=== PATIENT | female | born 1980 | race African-American/Black ===

== ENCOUNTER 2016-11-04 09:15 | Emergency (ER) | payer OTHER ==
[~2016-11-04 09:15] MED LIST: CYCL-36 PO; DIPH2%T PO; ZYRT10TA12 PO
--- NOTE | 2016-11-04 09:57 | PD ---
HPI Chief Complaint Possible contractions Date Seen: Nov 04, 2016 Time Seen: 09:33 (Soham Gomez MD) Travel History International Travel<30 Days: No Contact w/Intl Traveler<30Days: No Known Affected Area: No (Soham Gomez MD) History of Present Illness HPI 36-year-old 4 para 2011 at 26 weeks and 2 days gestation with an EDC of February 10 who reports being in her normal state of health until she awakened this morning and was feeling some lower abdominal discomfort. This was not relieved by bowel movement and passing gas and then she began to wonder if this could be contractions. She denies any diarrhea, nausea vomiting, dysuria hematuria or frequency. No vaginal discharge or bleeding. She has not had intercourse recently. She reports having been very physically active due to moving house. Para: 2 : 4 Miscarriage: 1 (Soham Gomez MD) History Past Medical History Narrative Medical History of migraines Recent workup for thrombocytopenia which was identified in her last . She reports her last platelet count in the 140,000 range (Soham Gomez MD) Obstetric History Obstetric History 2 prior vaginal deliveries at term Current gestation is on uncomplicated and followed by Dr. Flores (Soham Gomez MD) Past Surgical History Narrative Surgical She had partial colectomy around age 10 (Soham Gomez MD) Family History Family History: Negative (Soham Gomez MD) Social History Alcohol Use: No Tobacco Use: No Substance Abuse: No (Soham Gomez MD) Allergies-Medications (Allergen,Severity, Reaction): Coded Allergies: No Known Allergies (Verified , 05/30/16) Home Meds Active Scripts Cyclobenzaprine Hcl (Flexeril)10 Mg Tab10 Mg PO TID #20 TAB Ref 0 Prov:Jerome Whittaker MD 05/31/16 Reported Medications Diphenhydramine Hcl (Benadryl)25 Mg Cap25 Mg PO HS PRN 05/31/16 Cetirizine Hcl (Zyrtec)10 Mg Tab10 Mg PO DAILY 05/31/16 Review of Systems Except as stated in HPI: all other systems reviewed are Neg (Soham Gomez MD) Physical Exam Narrative GENERAL: Well-nourished, well-developed patient. SKIN: Warm and dry. HEAD: Normocephalic and atraumatic. EYES: No scleral icterus. No injection or drainage. ENT: No nasal drainage noted. Mucous membranes pink. Airway patent. NECK: Supple, trachea midline. No JVD. CARDIOVASCULAR: Regular rate and rhythm without murmurs, gallops, or rubs. RESPIRATORY: Breath sounds equal bilaterally. No accessory muscle use. ABDOMEN/GI: Abdomen soft, non-tender, bowel sounds present, no rebound, no guarding Gravid to [-] weeks size Fundal Height: [-26] GENITOURINARY: External Genitalia: intact and normal in appearance BUS glands: [-] Cervix: [-] Dilatation: [Closed-] Effacement: [-] Long Station: [-Ballotable] Presentation: [-] Membranes: [intact Uterine Contractions: [-] FHT's: Category: [-] Baseline: [-] Reactive: [-] Variability: [-] Decels: [-] EXTREMITIES: No cyanosis or edema. BACK: Nontender without obvious deformity. No CVA tenderness. NEUROLOGICAL: Awake and alert. Motor and sensory grossly within normal limits. Five out of 5 muscle strength in all muscle groups. Normal speech. (Soham Gomez MD) Data Data Vital Signs Reviewed: Yes (Soham Gomez MD) MDM Medical Record Reviewed: Yes Narrative Course / MDM 36-year-old multiparous female at 26+ weeks gestation with possible contractions Plan: Urinalysis, monitor for signs of contraction activity (Soham Gomez MD) Plan small CTXs seen -- give 1 L IVF and SQ terb .25 mg , UA neg , plan to D/C after IVF in if not CTXing (Jose De Jesus Perez II, MD) Soham Gomez MD Nov 04, 2016 09:57 Jose De Jesus Perez II, MD Nov 04, 2016 10:56
[2016-11-04 10:06] LABS: BACTERIA, URINE OCC /hpf; BLOOD, URINE NEG (NEG); COMMENT (UR) CULT NOT INDICATED; CULTURE IF INDICATED CULT NOT INDICATED; GLUCOSE,URINE NEG (NEG); KETONE, URINE NEG (NEG); MUCUS URINE FEW /lpf (OCC); NITRITE,URINE NEG (NEG); PH, URINE 6.5 (5.0-8.5); SQUAMOUS EPITHELIAL CELL URINE 2 /hpf (0-5); URINE COLOR YELLOW (YELLW/STRAW)
[2016-11-04] MEDS ORDERED: LACTATED RINGER'S 1000 ML INJ 1,000 ML IV SCH (10:37)
[2016-11-04] MEDS ORDERED: TERBUTALINE INJ 1 MG/ML AMP SQ ONE (11:30)
== END 2016-11-04 21:09 | disposition home or self-care (01) ==
LOC: HOBED 09:15
DX: O26.892 Other specified pregnancy related conditions, second trimester (principal); R10.30 Lower abdominal pain, unspecified
CPT/HCPCS: 81001; 96372; 99284; J3105; J7120

== ENCOUNTER 2017-01-20 10:38 | Emergency (ER) | payer OTHER ==
[~2017-01-20] VITALS: Ht 165.1 cm; Wt 78.9 kg
[2017-01-20 11:15] VITALS: RESP 20; TEMP 98.7
[2017-01-20] MEDS ORDERED: prenatal vitamin (11:23)
[2017-01-20] MEDS ORDERED: LACTATED RINGER'S 1000 ML INJ 1,000 ML IV SCH (12:11)
[2017-01-20] MEDS ORDERED: ONDANSETRON HCL 4 MG/2 ML VIAL IV ONE (12:15)
--- NOTE | 2017-01-20 13:03 | PD ---
HPI Chief Complaint abdominal pain, diarrhea, vomiting Travel History International Travel<30 Days: No Contact w/Intl Traveler<30Days: No Known Affected Area: No History of Present Illness HPI PT is a 36 y//o with IUP at 37w0d who presents for eval of ab pain, n/v , and diarrhea. PT reports that she ate some fish, rice, and vegetables around 2:30 am, then woke up this morning around 7:30 am with abdominal pain. She went to bathroom and had diarrhea followed by copious vomiting. No vomiting or diarrhea since arrival, but patient has not tried to eat or drink anything. Pt denies fever. Pt reports feeling some contractions. denies LOF. +FM Para: 2 : 5 Miscarriage: 1 : 1 History Past Medical History Narrative Medical thrombocytopenia Obstetric History Obstetric History 2003 FTSVD 2006 FTSVD EAB SAB Past Surgical History Narrative Surgical D+C Family History Family History: Negative Social History Alcohol Use: No Tobacco Use: No Substance Abuse: No Allergies-Medications (Allergen,Severity, Reaction): Coded Allergies: No Known Allergies (Verified , 05/30/16) Home Meds Reported Medications [ vitamin] No Conflict Check1 01/20/17 Diphenhydramine Hcl (Benadryl)25 Mg Cap25 Mg PO HS PRN 05/31/16 Discontinued Reported Medications Cetirizine Hcl (Zyrtec)10 Mg Tab10 Mg PO DAILY 05/31/16 Discontinued Scripts Cyclobenzaprine Hcl (Flexeril)10 Mg Tab10 Mg PO TID #20 TAB Ref 0 Prov:Jerome Whittaker MD 05/31/16 Review of Systems General / Constitutional: No: Fever, Weight Gain, Weight Loss, Chills, Other Eyes: No: Diploplia, Blurred Vision, Visual changes, Pain, Photophobia, Other HENT: No: Headaches, Vertigo, Dental Difficulties, Lightheadedness, Other Cardiovascular: No: Irregular Rhythm, Chest Pain or Discomfort, Palpitations, Tachycardia, Syncope, Varicosities, Edema, Cyanosis, Other Respiratory: No: Cough, Short of Breath, Wheezing, Other Gastrointestinal: Nausea, Vomiting, Diarrhea, Abdominal Pain, Indigestion Genitourinary: No: Urgency, Frequency, Dysuria, Nocturia, Hematuria, Decreased Urinary Output, Oliguria, Hesitancy, Dribbling, Incontinence, Pelvic Pain, Dyspareunia, Discharge, Menorrhagia, Vaginal Bleeding, Other Musculoskeletal: No: Limited ROM, Weakness, Cramping, Edema, Pain, Other Skin: No Rash, No Itching, No Dryness, No Lumps, No Change in Pigmentation, No Change in Nails, No Alopecia, No Lesions, No Breast Lumps, No Breast Tenderness , No Breast Swelling, No Other Neurologic: No: Weakness, Dizziness, Syncope, Focal Abnormalities, Coordination Problem, Headache, Slurred Speech, Seizures, Other Psychiatric: No: Anxiety, Depression, Suicidal Ideations, Disorder of Thought, Mood Disorder, Substance Abuse, Homicidal Ideation, Other Endocrine: No: Heat Intolerance, Cold Intolerance, Polydipsia, Polyuria, Other Hematologic/Lymphatic: No Easy Bruising, No Lymph Node Enlargement, No Other Physical Exam 122/77, 84 Narrative GENERAL: Well-nourished, well-developed patient. SKIN: Warm and dry. HEAD: Normocephalic and atraumatic. EYES: No scleral icterus. No injection or drainage. ENT: No nasal drainage noted. Mucous membranes pink. Airway patent. NECK: Supple, trachea midline. No JVD. CARDIOVASCULAR: Regular rate and rhythm without murmurs, gallops, or rubs. RESPIRATORY: Breath sounds equal bilaterally. No accessory muscle use. ABDOMEN/GI: Abdomen soft, non-tender, bowel sounds present, no rebound, no guarding Gravid GENITOURINARY: External Genitalia: intact and normal in appearance BUS glands: [wnl] Cervix: posterior Dilatation: 1 Effacement: 25 Station: -[address]: [facility] Membranes: intact Uterine Contractions: irritability FHT's: Category: 1 Baseline: 140s Reactive: yes Variability: mod Decels: no EXTREMITIES: No cyanosis or edema. BACK: Nontender without obvious deformity. No CVA tenderness. NEUROLOGICAL: Awake and alert. Motor and sensory grossly within normal limits. Five out of 5 muscle strength in all muscle groups. Normal speech. Data Data Vital Signs Reviewed: Yes Orders Vital Signs (Adult) .ON ADMISSION (01/20/17 12:11) ^ Labor Status (01/20/17 12:11) Lactated Ringer's 1000 Ml Inj (Lr 1000 M (01/20/17 12:11) Ondansetron Inj (Zofran Inj) (01/20/17 12:15) Complete Blood Count With Diff (01/20/17 12:34) Comprehensive Metabolic Panel (01/20/17 12:34) Labs Laboratory Tests Test 01/20/17 12:30 White Blood Count 10.0 TH/MM3 Red Blood Count 3.96 MIL/MM3 Hemoglobin 11.1 GM/DL Hematocrit 34.8 % Mean Corpuscular Volume 87.9 FL Mean Corpuscular Hemoglobin 28.1 PG Mean Corpuscular Hemoglobin 31.9 % Concent Red Cell Distribution Width 16.4 % Platelet Count 72 TH/MM3 Mean Platelet Volume 11.6 FL Neutrophils (%) (Auto) 84.2 % Lymphocytes (%) (Auto) 12.3 % Monocytes (%) (Auto) 3.2 % Eosinophils (%) (Auto) 0.0 % Basophils (%) (Auto) 0.3 % Neutrophils # (Auto) 8.4 TH/MM3 Lymphocytes # (Auto) 1.2 TH/MM3 Monocytes # (Auto) 0.3 TH/MM3 Eosinophils # (Auto) 0.0 TH/MM3 Basophils # (Auto) 0.0 TH/MM3 CBC Comment AUTO DIFF Differential Comment AUTO DIFF CONFIRMED Platelet Estimate LOW Platelet Morphology Comment ENLARGED Ovalocytes 1+ Sodium Level 139 MEQ/L Potassium Level 4.5 MEQ/L Chloride Level 108 MEQ/L Carbon Dioxide Level 20.0 MEQ/L Anion Gap 11 MEQ/L Blood Urea Nitrogen 9 MG/DL Creatinine 0.61 MG/DL Estimat Glomerular Filtration 134 ML/MIN Rate Random Glucose 57 MG/DL Calcium Level 8.9 MG/DL Total Bilirubin 0.3 MG/DL Aspartate Amino Transf 29 U/L (AST/SGOT) Alanine Aminotransferase 24 U/L (ALT/SGPT) Alkaline Phosphatase 149 U/L Total Protein 6.7 GM/DL Albumin 2.7 GM/DL MDM Medical Record Reviewed: Yes Narrative Course / MDM 36 y/o with IUP at 37 wks with probable viral gastroenteritis versus food poisoning no evidence of labor at this time will IV hydrate, give zofran, check cbc/cmp, then attempt po challenge pt still feeling cramping but improved s/p hydration and medication. tolerated po challenge. d/c home--recommend rest, clear liquids x 24 hours then slowly advance diet return to ed for worsening symptoms Diagnosis Diagnosis: Primary Impression: Gastroenteritis Additional Impression: 37 weeks gestation of Disposition: 01 DISCHARGE HOME Condition: Stable Patient Instructions: Abdominal Pain in (ED), General Instructions, Early Labor Signs (ED) Erasto Ahumada MD Jan 20, 2017 13:03
[2017-01-20 13:12] LABS: AUTOMATED NEUTROPHIL # 8.4 TH/MM3 (1.8-7.7); BASOPHIL % 0.3 % (0.0-2.0); HEMATOCRIT 34.8 % (35.0-46.0); LYMPH % 12.3 % (9.0-44.0); LYMPHOCYTE # 1.2 TH/MM3 (1.0-4.8); MEAN CELL VOLUME 87.9 FL (80.0-100.0); MEAN CORPUSCULAR HEMOGLOBIN 28.1 PG (27.0-34.0); MEAN CORPUSCULAR HGB CONC 31.9 % (32.0-36.0); MONO % 3.2 % (0.0-8.0); NEUT % 84.2 % (16.0-70.0); PLATELET COUNT 72 TH/MM3 (150-450); RED BLOOD COUNT 3.96 MIL/MM3 (4.00-5.30); RED CELL DISTRIBUTION WIDTH 16.4 % (11.6-17.2)
[2017-01-20] MEDS ORDERED: CALCIUM CARBONATE 500 MG CHEWABLE TAB CHEW ONE (13:15)
[2017-01-20 13:45] LABS: ALT (GPT) 24 U/L (10-53)
[2017-01-20] MEDS ORDERED: LOPERAMIDE HCL 2 MG CAP PO ONE (13:45)
[2017-01-20 13:47] LABS: ALKALINE PHOSPHATASE 149 U/L (45-117); TOTAL BILIRUBIN ADULT 0.3 MG/DL (0.2-1.0)
[2017-01-20 13:48] LABS: ANION GAP 11 MEQ/L (5-15); AST (GOT) 29 U/L (15-37); BLOOD UREA NITROGEN 9 MG/DL (7-18); CHLORIDE 108 MEQ/L (98-107); GLOMERULAR FILTRATION RATE 134 ML/MIN (>89); POTASSIUM 4.5 MEQ/L (3.5-5.1); SODIUM (NA) 139 MEQ/L (136-145)
[2017-01-20 13:51] VITALS: BP 112/69; PULSE 84
[2017-01-20 13:54] LABS: HEMO FLAGS AUTO DIFF
[2017-01-20 13:58] LABS: OVALOCYTES 1+ (NORMAL); PLATELET ESTIMATE SMEAR LOW (NORMAL); PLATELET MORPHOLOGY ENLARGED (NORMAL); SCAN/DIFF AUTO DIFF CONFIRMED
== END 2017-01-20 14:58 | disposition home or self-care (01) ==
LOC: HOBED 10:38
DX: O99.613 Diseases of the digestive system complicating pregnancy, third trimester (principal); K52.9 Noninfective gastroenteritis and colitis, unspecified; Z3A.37 37 weeks gestation of pregnancy
CPT/HCPCS: 80053; 85025; 96361; 96374; 99284; J2405; J7120

== ENCOUNTER 2017-02-03 06:07 | Inpatient (IN) | payer OTHER ==
[~2017-02-03] VITALS: Ht 165.1 cm; Wt 78.9 kg
[2017-02-03] VITALS (31 sets, daily range): BP systolic 112–142; BP diastolic 69–118; PULSE 67–87; RESP 8–20; TEMP 97.3–98.1
[~2017-02-03 06:07] MED LIST changes: -CYCL-36 PO; -ZYRT10TA12 PO; +prenatal vitamin
[2017-02-03] MEDS ORDERED: LIDOCAINE HCL 1% 50 ML VIAL I-DERMAL PRN (06:30)
[2017-02-03] MEDS ORDERED: NS 500 ML BOLUS IV PRN (06:30)
[2017-02-03] MEDS ORDERED: LACTATED RINGER'S 1000 ML IV SCH (06:30)
[2017-02-03] MEDS ORDERED: LACTATED RINGER'S 1000 ML BOLUS IV PRN (06:30)
[2017-02-03] MEDS ORDERED: CITRIC ACID-SODIUM CITRATE LIQ 30 ML UDC PO SCH (06:30)
[2017-02-03] MEDS ORDERED: NS 1000 ML IV PRN (06:30)
[2017-02-03] MEDS ORDERED: LIDOCAINE HCL 1% 50 ML VIAL INFIL PRN (06:30)
[2017-02-03] MEDS ORDERED: ONDANSETRON HCL 4 MG/2 ML VIAL IV PRN (06:30)
[2017-02-03] MEDS ORDERED: OXYTOCIN 30 UNITS 500ML PREMIX IV ONE (06:30)
[2017-02-03] MEDS ORDERED: MINERAL OIL 10 ML VIAL TOPICAL PRN (06:30)
[2017-02-03] MEDS ORDERED: OXYTOCIN 30 UNITS/NS 500ML PREMIX IV SCH (06:30)
[2017-02-03 08:25] LABS: BACTERIA, URINE FEW /hpf; BLOOD, URINE TRACE (NEG); COMMENT (UR) CULT NOT INDICATED; CULTURE IF INDICATED CULT NOT INDICATED; GLUCOSE,URINE NEG (NEG); KETONE, URINE NEG (NEG); MUCUS URINE FEW /lpf (OCC); NITRITE,URINE NEG (NEG); PH, URINE 6.5 (5.0-8.5); SQUAMOUS EPITHELIAL CELL URINE 1 /hpf (0-5); URINE COLOR YELLOW (YELLW/STRAW)
[2017-02-03 08:59] LABS: AUTOMATED NEUTROPHIL # 7.8 TH/MM3 (1.8-7.7); BASOPHIL # 0.1 TH/MM3 (0-0.2); BASOPHIL % 0.7 % (0.0-2.0); HEMATOCRIT 35.7 % (35.0-46.0); LYMPH % 16.5 % (9.0-44.0); LYMPHOCYTE # 1.6 TH/MM3 (1.0-4.8); MEAN CELL VOLUME 87.3 FL (80.0-100.0); MEAN CORPUSCULAR HEMOGLOBIN 29.1 PG (27.0-34.0); MEAN CORPUSCULAR HGB CONC 33.3 % (32.0-36.0); MONO % 4.8 % (0.0-8.0); PLATELET COUNT 79 TH/MM3 (150-450); RED BLOOD COUNT 4.09 MIL/MM3 (4.00-5.30); RED CELL DISTRIBUTION WIDTH 18.4 % (11.6-17.2)
[2017-02-03 09:00] LABS: HEMO FLAGS AUTO DIFF
[2017-02-03 09:29] LABS: OVALOCYTES 1+ (NORMAL); PLATELET ESTIMATE SMEAR LOW (NORMAL); PLATELET MORPHOLOGY ENLARGED (NORMAL)
[2017-02-03 09:30] LABS: SCAN/DIFF AUTO DIFF CONFIRMED
[2017-02-03] MEDS: predniSONE 20 MG TAB PO SCH (09:30)
--- NOTE | 2017-02-03 09:56 | MB ---
cc: CRISTI RODRIGUEZ MD DATE OF CONSULTATION: 02/03/2017 DATE OF : 1980. REASON FOR CONSULTATION Thrombocytopenia (chronic). CHIEF COMPLAINT Ms. Higuera presents to the hospital electively for labor induction; she is with her third baby. She denies other complaints, specifically overt bleeding. HISTORY OF PRESENT ILLNESS Ms. Higuera is a 36-year-old female with a history of chronic thrombocytopenia whom I last met 3 days ago in clinic. The patient was referred to me for reevaluation of her thrombocytopenia by her sales leader. Ms. Higuera has had a longstanding history of thrombocytopenia dating back over 10 years. She has not required any interventions up until about a week and a half ago. She was at that time initiated on corticosteroids of 40 mg prednisone daily which she tapered down to 20 mg three days ago. The prednisone seemingly had limited effect on her thrombocytopenia as her platelet counts remained in the 70 to 80,000 range. 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 However, the final decision of epidural placement will be left to the anesthesiologists. Ms. Higuera reports already feeling contractions, she is on the monitor and the baby's heart rate and rhythm seem to be normal and appropriate given the contractions. PAST MEDICAL HISTORY 1. Chronic thrombocytopenia dating back at least to 2001. 2. Migraines. 3. Menorrhagia. PAST SURGICAL HISTORY 1. Partial colectomy at the age of 10. 2. Umbilical hernia surgery. GYNECOLOGIC 4, para 2. FAMILY HISTORY Mom is living, she has rheumatoid arthritis, father is living and he has diabetes. No known oncologic diagnoses. 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 She reports being a lifelong nonsmoker. ALLERGIES NO KNOWN DRUG ALLERGIES. MEDICATION Current inpatient medications: 1. Lactated Ringer's. 2. Oxytocin 30 units IV titration. 3. Normal saline 100 cc/hour. 4. Citric acid 30 mL correctional medicine physician. 5. Fentanyl 50 mcg x1. 6. Zofran 4 mg IV q.6 hours. REVIEW OF SYSTEMS 13-point review of systems is obtained. The patient denies any acute complaints other than contractions and pain associated with that of the uterus. She specifically denies fevers, chills, night sweats, overt bleeding, nausea, vomiting, diarrhea hematochezia or melena. She denies difficulty breathing, she denies chest pain, she denies headaches, she denies any focal sensory or motor deficits, she denies bruising. PHYSICAL EXAMINATION VITAL SIGNS: Temperature 97.9 degrees Fahrenheit, heart rate 81 beats per minute, respiratory rate 18, blood pressure 125/83. GENERAL PHYSICAL APPEARANCE: Ms. Higuera is a young female, she is laying in bed with a monitor around her belly. She has a visibly gravid uterus. HEENT: Head atraumatic, normocephalic, conjunctivae are non-pale, sclerae are anicteric, EOMI, PERRLA. ORAL EXAM: No pharyngeal erythema. NECK: No palpable cervical or supraclavicular lymphadenopathy. RESPIRATORY: Good air movement bilaterally with normal breath sounds. CARDIOVASCULAR: Regular rate and rhythm, S1-S2. No obvious murmurs, rubs or gallops. ABDOMEN: She has a term gravid uterus, monitor on the belly. LOWER EXTREMITIES: No pretibial edema or calf tenderness. 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 SKIN: No obvious bruises. LABORATORY DATA CBC: Dated 02/03/2017: WBC count 10, hemoglobin 11.9 gm/dl, hematocrit 35.7%, platelet count 79,000, absolute neutrophil count is 7.8. Urinalysis indicates a urine protein and urine occult blood. ASSESSMENT Ms. Higuera is a 36-year-old female with a longstanding history of thrombocytopenia. I have been asked to see her for this issue. She is getting ready to undergo labor induction. This will be her third delivery. When she was delivering her previous two babies, she had thrombocytopenia at that time too, however, the deliveries were not complicated by excessive bleeding. She however, was unable to receive epidural anesthesia for either of the previous two. This time she does want epidural anesthesia. RECOMMENDATIONS 1. Thrombocytopenia: At this point I would recommend proceeding with delivery. If the anesthesiologist would like her platelet count to be higher than the present level, I would recommend a simple platelet transfusion with Benadryl and Tylenol as pretreatment. She does not require IVIG at this point. 2. She had been on outpatient gradual prednisone taper. I would therefore continue the prednisone 20 mg daily for the time being and then gradually taper by 5 mg every four days until she is completely off. The hematology service will follow with you. Please do not hesitate to call with any questions or concerns. MD ALMA Chakraborty/FEMI /9:14 AM /9:40 AM
--- NOTE | 2017-02-03 10:09 | MH ---
cc: LOWELLSUEFIDEL DATE OF ADMISSION: 02/03/2017 REASON FOR ADMISSION 1. Intrauterine at 39 weeks and zero days. 2. Thrombocytopenia. HISTORY OF PRESENT ILLNESS Ms. Higuera is a 36-year-old black female, para 2-0-1-2, who is at 39 weeks and zero days. She is brought in for induction and to check her platelets. Her platelets have been running in the low 100s and recently have gone to the 70-80 eunice. She is brought in to check her platelets and consider a platelet transfusion if she wants an epidural versus IgG treatment if they are very low. She understands the risks and benefits of this procedure and has agreed to proceed. We had tried steroids recently 40 mg a day of prednisone which did not markedly increase her platelets. PAST OB HISTORY She is para 2-0-1-2. She has a history of trichomonas last year. Her most recent trichomonas culture was negative. Her Pap was negative on 05/01/2017. 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 Her Pap is negative. PAST SURGICAL HISTORY Negative. PAST MEDICAL HISTORY 1. Anemia. 2. Migraine headaches. 3. Thrombocytopenia. SOCIAL HISTORY She never smoked. She denies drug use. She used alcohol socially before . She is single. FAMILY HISTORY Noncontributory. ALLERGIES No known drug allergies. MEDICATIONS Current medications are vitamins, one p.o. q. day. She recently had a course of steroids. REVIEW OF SYSTEMS She denies headaches, shortness of breath, chest pain, chest pressure. She reports good movement, good bowel and bladder function. PHYSICAL EXAMINATION GENERAL: A well-developed, well-nourished female in no acute distress. CHEST: Clear to auscultation. HEART: Regular rate and rhythm without murmur. ABDOMEN: Gravid, nontender. The fundus is nontender. PELVIC: External genitalia is normal. Vagina is clean. Cervix is 2 cm, 80%, vertex, -3. EXTREMITIES: No clubbing or cyanosis. There is no tenderness in her calves. ASSESSMENT AND PLAN 1. Intrauterine at 39 weeks and zero days. 2. Thrombocytopenia. Her platelets came back at 79. Will go ahead and proceed with induction at this time before her platelets fall any further. She understands the risks and benefits and if she wants an epidural she is probably going to need a platelet transfusion. Will defer that to Anesthesia. 3. Advanced maternal age. 4. Anemia. Will check her hematocrit. R. Fidel Flores MD RJV/BT /9:41 AM /9:51 AM
[2017-02-03] MEDS ORDERED: MEPERIDINE HCL 50 MG/ML VIAL IV PUSH ONE (13:30)
--- NOTE | 2017-02-03 15:09 | PD.OB.DELI ---
Delivery Date: Feb 03, 2017 Anesthesia: None Episiotomy: None Vaginal Delivery: Normal Presentation: Occiput anterior Nuchal Cord: None Delayed cord clamping (45 sec): No : Female One Minute : 8 Five Minute : 8 Weight: 3305g Placenta: Spontaneous delivery, Intact, 3 vessel cord Laceration: No lacerations Additional Information EBL 250cc Baby Ailyn. (Alicia Ayala MD R2) Collaborating MD Ita I was present for the delivery and supervised the procedure. (Essence Brito MD) Alicia Ayala MD R2 Feb 03, 2017 15:09 Essence Brito MD Feb 04, 2017 08:30
[2017-02-03 15:14] LABS: BLOOD GAS BASE EXCESS -3.7 mmol/L (-2-2); BLOOD GAS O2 HGB SATURATION 63 % (90-100); CORD BLOOD GAS HCO3 21 mmol/L (21-29); CORD BLOOD GAS PCO2 38 mmHG (34-78); CORD BLOOD GAS PH 7.36 (7.14-7.42); CORD BLOOD GAS PO2 30 mmHG (3.0-40.0); DRAW SITE CORD BLOOD; STAT NO
[2017-02-03] MEDS ORDERED: ONDANSETRON ODT 4 MG TAB PO PRN (15:15)
[2017-02-03] MEDS ORDERED: SODIUM CHLORIDE 0.9% FLUSH 10 ML FLUSH IV FLUSH PRN (15:15)
[2017-02-03] MEDS ORDERED: ZOLPIDEM TARTRATE 5 MG TAB PO PRN (15:15)
[2017-02-03] MEDS ORDERED: ACETAMINOPHEN 325 MG TAB PO PRN (15:15)
[2017-02-03] MEDS ORDERED: WITCH HAZEL 50%/GLYCERIN 12.5% 40 PAD JAR TOPICAL PRN (15:15)
[2017-02-03] MEDS ORDERED: BENZOCAINE 20% TOPICAL SPRAY 60 ML CAN TOPICAL PRN (15:15)
[2017-02-03] MEDS ORDERED: oxyCODONE/ACETAMINOPHEN 5 MG/325 MG TAB PO PRN (15:15)
[2017-02-03] MEDS ORDERED: ALUMINUM/MAGNESIUM/SIMETH 30 ML CUP PO PRN (15:15)
[2017-02-03] MEDS ORDERED: DOCUSATE SODIUM 50 MG/SENNA 8.6 MG TAB PO PRN (15:15)
[2017-02-03] MEDS ORDERED: MEASLES, MUMPS, RUBELLA VACCINE 0.5 ML VIAL SQ ONE (16:00)
[2017-02-03] MEDS ORDERED: DIPHTH/TETANUS/ACEL PERTUSSIS (BOOSTER) 0.5 ML VIAL/PFS IM ONE (16:00)
[2017-02-03] MEDS: IBUPROFEN 600 MG TAB PO PRN (21:24)
[2017-02-04] MEDS: oxyCODONE/ACETAMINOPHEN 5 MG/325 MG TAB PO PRN ×5 (00:45→20:23)
[2017-02-04] MEDS: IBUPROFEN 600 MG TAB PO PRN ×3 (04:44→20:23)
[2017-02-04 05:56] LABS: AUTOMATED NEUTROPHIL # 9.4 TH/MM3 (1.8-7.7); BASOPHIL % 0.2 % (0.0-2.0); EOSINOPHIL % 0.1 % (0.0-4.0); LYMPH % 19.5 % (9.0-44.0); LYMPHOCYTE # 2.5 TH/MM3 (1.0-4.8); MEAN CELL VOLUME 87.9 FL (80.0-100.0); MEAN CORPUSCULAR HEMOGLOBIN 28.5 PG (27.0-34.0); MEAN CORPUSCULAR HGB CONC 32.5 % (32.0-36.0); MONO % 5.4 % (0.0-8.0); NEUT % 74.8 % (16.0-70.0); PLATELET COUNT 66 TH/MM3 (150-450); RED BLOOD COUNT 3.64 MIL/MM3 (4.00-5.30); RED CELL DISTRIBUTION WIDTH 18.4 % (11.6-17.2); WHITE BLOOD COUNT 12.6 TH/MM3 (4.0-11.0)
[2017-02-04 06:01] LABS: HEMO FLAGS AUTO DIFF
--- NOTE | 2017-02-04 07:50 | HHI.OB ---
Subjective Post Day: 1 Remarks Doing well , bleeding is good Tolerating diet and baby is good. Objective Vitals/I&O Vital Signs Date Time Temp Pulse Resp B/P Pulse Ox O2 Delivery O2 Flow Rate FiO2 02/03/17 21:00 71 18 112/71 02/03/17 21:00 97.8 02/03/17 17:00 97.5 02/03/17 17:00 72 16 133/76 02/03/17 16:30 97.6 18 02/03/17 16:15 67 126/73 02/03/17 16:00 17 02/03/17 16:00 18 02/03/17 15:45 18 02/03/17 15:45 72 02/03/17 15:45 69 130/80 02/03/17 15:45 127/73 02/03/17 15:30 77 129/86 02/03/17 15:30 18 02/03/17 15:15 18 02/03/17 15:15 97.3 02/03/17 15:15 83 8 126/93 02/03/17 15:00 20 02/03/17 14:00 20 02/03/17 13:30 20 02/03/17 13:00 18 02/03/17 12:45 97.7 02/03/17 12:31 87 142/69 02/03/17 12:30 20 02/03/17 12:01 81 128/76 02/03/17 12:00 20 02/03/17 11:50 83 139/118 02/03/17 11:30 80 130/75 02/03/17 11:30 18 02/03/17 11:21 84 133/72 02/03/17 11:00 18 02/03/17 10:30 98.1 02/03/17 10:30 16 02/03/17 10:01 85 126/73 02/03/17 10:00 18 02/03/17 09:30 17 02/03/17 09:00 17 02/03/17 08:30 18 02/03/17 08:00 19 Objective Remarks GENERAL: Well-nourished, well-developed patient. CARDIOVASCULAR: Regular rate and rhythm without murmurs, gallops, or rubs. RESPIRATORY: Breath sounds equal bilaterally. No accessory muscle use. ABDOMEN/GI: Abdomen soft, non-tender. Fundus: Firm, non-tender at umbilicus. GENITOURINARY: Light to moderate bleeding. EXTREMITIES: No cyanosis or edema, non-tender, without signs of DVT. Medications and IVs Current Medications Medications (Trade) Dose Ordered Sig/Chase Route Start Time Stop Time Status Last Admin Oxytocin 500 ml @ 0 mls/hr TITRATE IV 02/03/17 06:30 02/03/17 11:18 Lactated Ringer's 1,000 ml @ 125 mls/hr Q8H IV 02/03/17 06:30 02/03/17 11:18 Lactated Ringer's 1,000 ml @ 3,000 mls/hr BOLUS PRN IV 02/03/17 06:30 Sodium Chloride 500 ml @ 1,000 mls/hr BOLUS PRN IV 02/03/17 06:30 (NS 1000 ml Inj) 1,000 ml @ 100 mls/hr Q10H PRN IV 02/03/17 06:30 (Zofran Inj) 4 mg Q6H PRN IV 02/03/17 06:30 (fentaNYL INJ) 50 mcg Q1H PRN IV PUSH 02/03/17 06:30 (fentaNYL INJ) 100 mcg Q1H PRN IV PUSH 02/03/17 06:30 02/03/17 15:00 (Muri-Lube Oil) 10 ml UNSCH PRN TOPICAL 02/03/17 06:30 (Deltasone) 20 mg DAILY PO 02/03/17 09:30 02/03/17 09:30 (NS Flush) 2 ml BID IV FLUSH 02/03/17 21:00 (NS Flush) 2 ml UNSCH PRN IV FLUSH 02/03/17 15:15 (Tylenol) 650 mg Q4H PRN PO 02/03/17 15:15 (Motrin) 600 mg Q6H PRN PO 02/03/17 15:15 02/04/17 04:44 (Percocet 5-325 Mg) 1 tab Q4H PRN PO 02/03/17 15:15 02/04/17 04:44 (Percocet 5-325 Mg) 2 tab Q4H PRN PO 02/03/17 15:15 (Americaine 20% Top Spr) 1 spray Q4H PRN TOPICAL 02/03/17 15:15 02/03/17 21:24 (Tucks Pads) 1 applic QID PRN TOPICAL 02/03/17 15:15 02/03/17 21:25 (Julee-Colace) 2 tab Q12H PRN PO 02/03/17 15:15 (Ambien) 5 mg HS PRN PO 02/03/17 15:15 (Mag-Al Plus Susp Liq) 15 ml Q8H PRN PO 02/03/17 15:15 (Zofran Odt) 4 mg Q6H PRN PO 02/03/17 15:15 Assessment/Plan Assessment and Plan PPD#1 Thrombocytopenia..platletlets are slg lower this am. Will check plts in the am. Anemia will start fe soon. Discharge Planning home tomorrow. Marge Flores MD Feb 04, 2017 07:50
[2017-02-04] MEDS ORDERED: IBUP-232 PO (08:08)
[2017-02-04] MEDS ORDERED: OXYC1TAB63 PO (08:08)
[2017-02-04] MEDS: predniSONE 20 MG TAB PO SCH (08:36)
--- NOTE | 2017-02-04 09:09 | HHI.DCPOC ---
Discharge Care Plan Diagnosis: (1) Thrombocytopenia affecting (2) Vaginal delivery (3) Anemia Your Health Problems Are: Vaginal delivery Report Symptoms to Your Doctor -Temperature above 100.5 degrees -Redness, of incision or excessive or foul smelling drainage -Unusual pain or calf pain -Increased vaginal bleeding -Painful or difficulty urinating -Feelings of extreme sadness or anxiety after 2 weeks Goals to Promote Your Health * To prevent worsening of your condition and complications * To maintain your health at the optimal level Directions to Meet Your Goals Take your medications as prescribed Follow your dietary instruction Follow activity as directed Ensure plenty of rest for recovery Drink fluids for hydration Keep your appointments as scheduled Take your immunizations and boosters as scheduled If your symptoms worsen call your PCP, if no PCP go to Urgent Care Center or Emergency Room Smoking is Dangerous to Your Health. Avoid second hand smoke Call the 24-hour crisis hotline for domestic abuse at Bindu Baird Feb 04, 2017 09:09
[2017-02-04 09:24] LABS: SCAN/DIFF AUTO DIFF CONFIRMED
[2017-02-04 10:35] VITALS: BP 122/75; PULSE 80; RESP 16; TEMP 98.1
[2017-02-04 20:00] VITALS: BP 121/89; PULSE 70; RESP 18; TEMP 98.3
[2017-02-04] MEDS: SODIUM CHLORIDE 0.9% FLUSH 10 ML FLUSH IV FLUSH SCH ×2 (20:23→21:00)
[2017-02-05] MEDS: oxyCODONE/ACETAMINOPHEN 5 MG/325 MG TAB PO PRN ×2 (04:13→09:58)
[2017-02-05] MEDS: IBUPROFEN 600 MG TAB PO PRN ×2 (04:13→09:57)
[2017-02-05 06:07] LABS: HEMATOCRIT 30.8 % (35.0-46.0); MEAN CELL VOLUME 87.9 FL (80.0-100.0); MEAN CORPUSCULAR HGB CONC 32.9 % (32.0-36.0); PLATELET COUNT 77 TH/MM3 (150-450); RED BLOOD COUNT 3.51 MIL/MM3 (4.00-5.30); RED CELL DISTRIBUTION WIDTH 18.7 % (11.6-17.2); WHITE BLOOD COUNT 9.6 TH/MM3 (4.0-11.0)
[2017-02-05 06:09] LABS: REVIEW FLAG FINAL
--- NOTE | 2017-02-05 06:41 | HHI.OB ---
Subjective Remarks day # 2 AFVSS overnight. Decreased lochia. Denies dysuria. Appetite good. No nausea or vomiting. Positive flatus/bowel movement. Ambulating well. Denies calf pain or shortness of breath. She is doing well this morning. (Alicia Ayala MD R2) Objective Vitals/I&O Vital Signs Date Time Temp Pulse Resp B/P Pulse Ox O2 Delivery O2 Flow Rate FiO2 02/04/17 20:00 98.3 70 18 121/89 02/04/17 10:35 80 122/75 02/04/17 10:35 98.1 16 Objective Remarks GENERAL: Well-nourished, well-developed patient. CARDIOVASCULAR: Regular rate and rhythm without murmurs, gallops, or rubs. RESPIRATORY: Breath sounds equal bilaterally. No accessory muscle use. ABDOMEN/GI: Abdomen soft, non-tender. Fundus: Firm, non-tender at umbilicus. GENITOURINARY: Light to moderate bleeding. EXTREMITIES: No cyanosis or edema, non-tender, without signs of DVT. Medications and IVs Current Medications Medications (Trade) Dose Ordered Sig/Chase Route Start Time Stop Time Status Last Admin Oxytocin 500 ml @ 0 mls/hr TITRATE IV 02/03/17 06:30 02/03/17 11:18 Lactated Ringer's 1,000 ml @ 125 mls/hr Q8H IV 02/03/17 06:30 02/03/17 11:18 Lactated Ringer's 1,000 ml @ 3,000 mls/hr BOLUS PRN IV 02/03/17 06:30 Sodium Chloride 500 ml @ 1,000 mls/hr BOLUS PRN IV 02/03/17 06:30 (NS 1000 ml Inj) 1,000 ml @ 100 mls/hr Q10H PRN IV 02/03/17 06:30 (Zofran Inj) 4 mg Q6H PRN IV 02/03/17 06:30 (fentaNYL INJ) 50 mcg Q1H PRN IV PUSH 02/03/17 06:30 (fentaNYL INJ) 100 mcg Q1H PRN IV PUSH 02/03/17 06:30 02/03/17 15:00 (Muri-Lube Oil) 10 ml UNSCH PRN TOPICAL 02/03/17 06:30 (Deltasone) 20 mg DAILY PO 02/03/17 09:30 02/04/17 08:36 (NS Flush) 2 ml BID IV FLUSH 02/03/17 21:00 02/04/17 20:23 (NS Flush) 2 ml UNSCH PRN IV FLUSH 02/03/17 15:15 (Tylenol) 650 mg Q4H PRN PO 02/03/17 15:15 (Motrin) 600 mg Q6H PRN PO 02/03/17 15:15 02/05/17 04:13 (Percocet 5-325 Mg) 1 tab Q4H PRN PO 02/03/17 15:15 02/05/17 04:13 (Percocet 5-325 Mg) 2 tab Q4H PRN PO 02/03/17 15:15 (Americaine 20% Top Spr) 1 spray Q4H PRN TOPICAL 02/03/17 15:15 02/03/17 21:24 (Tucks Pads) 1 applic QID PRN TOPICAL 02/03/17 15:15 02/03/17 21:25 (Julee-Colace) 2 tab Q12H PRN PO 02/03/17 15:15 (Ambien) 5 mg HS PRN PO 02/03/17 15:15 (Mag-Al Plus Susp Liq) 15 ml Q8H PRN PO 02/03/17 15:15 (Zofran Odt) 4 mg Q6H PRN PO 02/03/17 15:15 (Alicia Ayala MD R2) Assessment/Plan Assessment and Plan 36 y/o female who is POD# 2 s/p . -Continue routine care. - Thrombocytopenia- platelets trending up from 66 to 77 today. - Anemia- Ferrous Sulfate 325mg PO TID -Percocet and Motrin PRN pain. -Encouraged OOB. Advised pelvic rest for 6 wks. -Re: ctrl, she is considering Mirena. -Anticipate discharge home today. tamie Ahumada (Alicia Ayala MD R2) Attending Attestation The exam, history, and the medical decision-making described in the above note were completed with the assistance of the resident provider. I reviewed and agree with the findings presented. I attest that I had a caei-la-haau encounter with the patient on the same day, and personally performed and documented my assessment and findings in the medical record. (Erasto Ahumada MD) Alicia Ayala MD R2 Feb 05, 2017 06:41 Erasto Ahumada MD Feb 05, 2017 08:42
[2017-02-05] MEDS ORDERED: FERR324T4 PO (06:45)
[2017-02-05 08:00] VITALS: BP 135/85; PULSE 73; RESP 18; TEMP 98.4
--- NOTE | 2017-02-05 09:23 | HHI.DS ---
Admission Date Feb 03, 2017 at 06:07 Discharge Date: Feb 03, 2017 Admitting Diagnosis term induction of labor thrombocytopenia Diagnosis: (1) Anemia Diagnosis: Principal (2) Vaginal delivery Diagnosis: Principal (3) Thrombocytopenia affecting Diagnosis: Principal Delivery Date: Feb 03, 2017 Vaginal Delivery: Normal : Female Brief History thrombocytopenia managed with Dr Landrum term induction Hospital Course platelets trending up today 77,000 routine Pt Condition on Discharge: Good Discharge Disposition: Discharge Home Discharge Instructions Diet Instructions: As Tolerated, No Restrictions Activities You Can Perform: Pelvic Rest Activities to Avoid: Strenuous Activity, Bathing, Driving, Sexual Activity Follow up Referrals: PHILOSOPHY LECTURER - 2 Weeks @ [facility] New Medications: Ferrous Sulfate DR (Ferrous Sulfate DR) 324 Mg Tabdr 324 MG PO TID Nutritional Supplement #90 Ref 0 TAB Ibuprofen (Ibuprofen) 600 Mg Tab 600 MG PO pain Pain Management #30 Ref 2 TAB Oxycodone-Acetaminophen (Oxycodone-Acetaminophen) 5-325 mg Tab 1 TAB PO Q4H moderate pain #12 TAB Continued Medications: Diphenhydramine Hcl (Benadryl) 25 Mg Cap 25 MG PO HS PRN CAP ([ vitamin]) 1 Bindu Baird Feb 05, 2017 09:23
[2017-02-05] MEDS: predniSONE 20 MG TAB PO SCH (09:58)
== END 2017-02-05 14:33 | disposition home or self-care (01) | DRG 775 ==
LOC: H2EB 06:07 → H1EA 16:55
PROVIDERS: ADMIT Obstetrics & Gynecology; ATTEND Obstetrics & Gynecology
PROC: 10E0XZZ Delivery of Products of Conception, External Approach (ICD-10-PCS; principal; 2017-02-03)
DX: O99.12 Other diseases of the blood and blood-forming organs and certain disorders involving the immune mechanism complicating childbirth (principal); D69.6 Thrombocytopenia, unspecified; O09.523 Supervision of elderly multigravida, third trimester; O99.013 Anemia complicating pregnancy, third trimester; D64.9 Anemia, unspecified; Z3A.39 39 weeks gestation of pregnancy; Z37.0 Single live birth
CPT/HCPCS: 36415; 59025; 81001; 82805; 85025; 85027; 86850; 86900; 86901; 90715; 99212; 99214; G0463; J2590; J3010; J7120; J7512